=== PATIENT | male | born 1955 | race Caucasian/White ===

== ENCOUNTER → 2020-03-21 | Outpatient (CLI) | payer OTHER | END | disposition home or self-care (01) | LOC: RAH 10:32 | PROVIDERS: ATTEND Urology | DX: N28.1 Cyst of kidney, acquired (principal); N32.89 Other specified disorders of bladder; R31.9 Hematuria, unspecified; Z87.891 Personal history of nicotine dependence | CPT/HCPCS: 76770 ==